=== PATIENT | male | born 1960 | race African-American/Black ===

== ENCOUNTER 2018-03-03 08:17 | Day surgery (SDC) | payer OTHER ==
[2018-02-27 11:06] VITALS: BMI 28.8
[2018-03-03] MEDS ORDERED: PROPOFOL 20 ML ONE ×3 (08:48→10:58)
[2018-03-03 08:57] VITALS: TEMP 98
[2018-03-03 11:13] VITALS: BP 111/60; PULSE 74
--- NOTE | 2018-03-05 13:48 | PATH ---
Surgical Pathology Report Patient Name: DENISE GOMEZ [facility]. Rec. #: [id number] /Age/Gender: 1960 (Age: 57) / M Account: [id number] Location: [facility] AM[facility] Taken: 03/03/2018 Received: 03/03/2018 Reported: 03/05/2018 Physicians: Erick Arzate M.D. Specimen(s) Received BX PROXIMAL RIGHT COLON Clinical History Family history of colonic polyps Postoperative diagnosis: Polyp Final Diagnosis PROXIMAL COLON, RIGHT, BIOPSY: POLYPOID COLONIC MUCOSA WITH SUPERFICIAL HYPERPLASTIC FEATURES. Electronically Signed Miranda Olvera M.D. Gross Description Received in formalin, labeled "proximal right colon" is a morillo, irregular portion of soft tissue measuring 0.3 cm. in greatest dimension. The specimen is submitted in toto in one cassette. /03/04/2018 saudi03/04/2018
== END 2018-03-03 11:15 | disposition home or self-care (01) ==
LOC: FASU-ENDO 08:17
PROVIDERS: ATTEND Internal Medicine Gastroenterology
PROC: 0DBK8ZX Excision of Ascending Colon, Via Natural or Artificial Opening Endoscopic, Diagnostic (ICD-10-PCS; principal; 2018-03-03 10:10)
DX: Z12.11 Encounter for screening for malignant neoplasm of colon (principal); Z80.0 Family history of malignant neoplasm of digestive organs; K63.5 Polyp of colon
CPT/HCPCS: 88305-TC

== ENCOUNTER 2025-01-19 06:51 | Day surgery (SDC) | payer OTHER ==
[2025-01-15 16:02] VITALS: BMI 28.7
[2025-01-19] MEDS ORDERED: MIDAZOLAM HCL 2 MG/2 ML SINGLE DOSE VIAL ONE (07:29)
[2025-01-19] MEDS ORDERED: PROPOFOL 20 ML ONE ×2 (07:30→07:51)
[2025-01-19] MEDS: ceFAZolin SODIUM 1 GM VIAL IVPB ONE ×2 (07:44)
[2025-01-19] MEDS ORDERED: oxyCODONE HCL 5 MG TABLET PO PRN (08:48)
[2025-01-19 11:14] VITALS: BP 149/85; PULSE 82; RESP 18; TEMP 97.8
== END 2025-01-19 11:56 | disposition home or self-care (01) ==
LOC: JASU-SURG 06:51
PROVIDERS: ATTEND Urology
PROC: 0VT08ZZ Resection of Prostate, Via Natural or Artificial Opening Endoscopic (ICD-10-PCS; principal; 2025-01-19 07:30)
PROC: 0TJB8ZZ Inspection of Bladder, Via Natural or Artificial Opening Endoscopic (ICD-10-PCS; 2025-01-19 07:30)
DX: N40.1 Benign prostatic hyperplasia with lower urinary tract symptoms (principal); N42.0 Calculus of prostate
CPT/HCPCS: 82962; 88305-TC; 94760